=== PATIENT | female | born 1975 | race Caucasian/White ===

== ENCOUNTER 2016-08-14 20:15 | Emergency (ER) | payer MEDICAID ==
[~2016-08-14] VITALS: Ht 165.1 cm; Wt 62.1 kg
[2016-08-14 20:31] VITALS: BP 122/72
--- NOTE | 2016-08-14 20:43 | NUR ---
PT TAKEN TO ULTRA SOUND
--- NOTE | 2016-08-14 21:08 | NUR ---
PT RETURN FROM ULTRASOUND TO THE LOBBY
[2016-08-14 21:21] LABS: BASOPHILS # (AUTO) 0.2 K/uL (0.00-0.22); BASOPHILS % (AUTO) 1.9 % (0.0-2.0); EOSINOPHILS # (AUTO) 0.2 K/uL (0-0.4); EOSINOPHILS % (AUTO) 2.3 % (0.0-4.0); HEMATOCRIT 36.6 % (36-48); HEMOGLOBIN 11.4 g/dL (12.0-16.0); LYMPHOCYTES # (AUTO) 2.2 K/uL (2.5-16.5); LYMPHOCYTES % (AUTO) 24.4 % (20.5-51.1); MEAN CORPUSCULAR HEMOGLOBIN 22 pg (27-31); MEAN CORPUSCULAR HGB CONC 31 g/dL (33-37); MEAN CORPUSCULAR VOLUME 70 fL (80-94); MONOCYTES # (AUTO) 0.7 K/uL (0.8-1.0); MONOCYTES % (AUTO) 7.4 % (1.7-9.3); NEUTROPHILS # (AUTO) 5.8 K/uL (1.8-7.7); PLATELET COUNT (AUTO) 395 K/uL (140-450); RED CELL DISTRIBUTION WIDTH 27.8 % (11.6-13.7); WHITE BLOOD COUNT (AUTO) 9.1 K/uL (4.8-10.8)
--- NOTE | 2016-08-14 21:23 | NUR ---
PT TAKEN TO BED 4
--- NOTE | 2016-08-14 21:28 | NUR ---
Dr. Fry evaluating patient at bedside.
--- NOTE | 2016-08-14 21:30 | NUR ---
VAG BLEEDING , HEAVY ,WITH FIBROIDS. 8 WEEKS, SEEN BY PMD WITH REFERRAL LETTER, LMP 3.7 PT DENIES N/V/D; SKIN IS PINK/WARM/DRY; AAOX4 WITH EVEN AND STEADY GAIT; LUNGS CLEAR BL; HR EVEN AND REGULAR; PT DENIES ANY FEVER, CP, SOB, OR COUGH AT THIS TIME; PATIENT STATES PAIN OF 9/10 AT THIS TIME; VSS; PATIENT POSITIONED FOR COMFORT; HOB ELEVATED; BEDRAILS UP X2; BED DOWN. ER MD MADE AWARE OF PT STATUS.
[2016-08-14 21:33] LABS: ANION GAP 12.6 (8-16); CALCIUM 9.1 mg/dL (8.5-10.1); CARBON DIOXIDE 27.1 mmol/L (21-32); CREATININE 0.6 mg/dL (0.6-1.3); POTASSIUM 3.7 mmol/L (3.5-5.1)
[2016-08-14 21:49] LABS: APPEARANCE,URINE HAZY (CLEAR); COLOR,URINE YELLOW (YELLOW)
[2016-08-14 21:50] LABS: BACTERIA,URINE RARE /HPF (None Seen); BILIRUBIN,URINE NEGATIVE (NEGATIVE); BLOOD, URINE 3+ (NEGATIVE); LEUKOCYTE ESTERASE ,URINE NEGATIVE (NEGATIVE); NITRITE, URINE NEGATIVE (NEGATIVE); PROTEIN,URINE NEGATIVE (NEGATIVE); RBC,URINE TOO NUMEROUS TO COUN /HPF (0-5); UGLUCOSE NEGATIVE (NEGATIVE); UROBILINOGEN,URINE NEGATIVE EU/dL (0.2 - 1); WBC,URINE 0-3 /HPF (0-5)
[2016-08-14 21:51] LABS: MUCUS,URINE 2+ /LPF (None Seen)
[2016-08-14 22:01] VITALS: BP 122/72
--- NOTE | 2016-08-14 22:02 | NUR ---
Patient discharged with v/s stable. Written and verbal after care instructions given and explained. Patient verbalized understanding. Ambulatory with steady gait. All questions addressed prior to discharge. Advised to follow up with PMD.
== END 2016-08-14 22:02 | disposition home or self-care (01) ==
LOC: MED 20:15
DX: O03.9 Complete or unspecified spontaneous abortion without complication (principal); O09.521 Supervision of elderly multigravida, first trimester; Z3A.08 8 weeks gestation of pregnancy
CPT/HCPCS: 36415; 76801; 80048; 81001; 84702; 85025; 86900; 86901; 99285; Q0092